=== PATIENT | male | born 1935 | race Caucasian/White ===

== ENCOUNTER 2022-01-19 13:37 | Inpatient (IN) | payer MEDICARE, OTHER, SELFPAY ==
--- NOTE | 2022-01-16 09:31 | EKG12_ITS ---
Test Reason : PRE OP Blood Pressure : / mmHG Vent. Rate : 095 BPM Atrial Rate : 095 BPM P-R Int : 144 ms QRS Dur : 126 ms QT Int : 400 ms P-R-T Axes : 104 -41 065 degrees QTc Int : 502 ms Sinus rhythm with frequent Premature ventricular complexes Left axis deviation Left ventricular hypertrophy with QRS widening and repolarization abnormality Septal [place], age undetermined, cannot be excluded Abnormal ECG Confirmed by VANDANA FELDMAN, NAILA ([id number]), index editor MARSHA CHAMPION ([id number]) on 01/17/2022 12:51:30 PM Referred By: Jose Mendez Confirmed By:NAILA ROSS MD
[2022-01-16 09:48] LABS: Hematocrit 35.7 % (40-54); Hemoglobin 12.3 g/dL (13.0-16.5); Mean Corp Hgb Conc 34.5 g/dL (32-36); Mean Corpuscular Hgb 33.9 pg (27.0-32.0); Mean Corpuscular Volume 98.3 fL (80-94); Mean Platelet Vol. 12.3 fl (6.2-12.0); POSITIVE MORPHOLOGY YES; Platelet Count 268 K/mm3 (150-450); RBC Distribution Width CV 19.4 % (11.6-14.6); RBC Distribution Width SD 70.7 fl (35.1-43.9); Red Blood Count 3.63 M/mm3 (4.6-6.2); White Blood Count 9.4 K/mm3 (4.4-11.0)
[2022-01-16 10:09] LABS: International Normalized Ratio 1.1; Prothrombin Time (Protime)PT. 13.8 SECONDS (11.7-14.9)
[2022-01-16 10:23] LABS: AST(SGOT) 13 U/L (15-37); Alanine Aminotransfer ALT/SGPT 19 U/L (16-61); Albumin, Serum 3.8 g/dL (3.2-5.0); Alkaline Phosphatase 72 U/L (45-117); Anion Gap 5 (5-15); BUN 16 mg/dL (7-18); Bilirubin, Direct 0.35 mg/dL (0.00-0.30); Calcium,Total 10.1 mg/dL (8.5-10.1); Chloride 105 mmol/L (98-107); EST Glomerular Filtration Rate 75 mL/min (>60); Est Glom Filt Rate - Afr Amer 91 mL/min (>60); Glucose 141 mg/dL (74-106); Potassium 4.3 mmol/L (3.5-5.1); Protein, Total 7.8 g/dL (6.4-8.2); Sodium Level 139 mmol/L (136-145)
[2022-01-16 10:30] LABS: Hemoglobin A1c 5.5 % (3.8-5.6)
--- NOTE | 2022-01-18 14:44 | SUR.PREOP ---
pt called and given arrival time of 1230. pt also told per anesthesia that he can drink apple juice at 0830 d/t being diabetic and having later surgery. pt voices understanding
[2022-01-19] VITALS (10 sets, daily range): BP systolic 121–180; BP diastolic 61–84; PULSE 62–97; RESP 14–18; TEMP 36.3–36.9; O2SAT 95–100; BMI 28.2
[2022-01-19] MEDS: Lactated Ringers 1,000 ML 15 ML IV ×2 (12:53→15:33)
[2022-01-19 13:15] LABS: Bedside Glucose 127 mg/dL (74-106)
[2022-01-19] MEDS: Cefazolin 2 GM in 0.9% Normal Saline 100 ML IV (13:30)
--- NOTE | 2022-01-19 13:38 | DCINST_ITS ---
Discharge Instructions Diet Discharge Diet: No restrictions and Light diet - advance as tolerated Activity Discharge Activity: Return to Normal Activity and No Restrictions Follow Up Care Test Results: Test results from this visit will be discussed in further detail at your follow- up appointment, if applicable. Discharge Plan Admission Primary Reason for Your Visit: neel Attending Provider: Jose Mendez Primary Care Provider: SENTHIL ÁLVAREZ Instructions Patient Instructions: NEEL Home Recovery Discharge Orders/Prescriptions Prescriptions: New ciprofloxacin HCl [Cipro] 500 mg tablet 500 mg PO BID Qty: 10 0RF Continued losartan 50 mg Tablet 50 mg PO DAILY metformin 500 mg Tablet 500 mg PO BID Vitamin B-12 50 mcg Tablet 50 mcg PO DAILY pravastatin 10 mg Tablet 5 mg PO DAILY tamsulosin 0.4 mg Capsule 0.4 mg PO DAILY docusate sodium [Colace] 100 mg Capsule 100 mg PO DAILY hydrochlorothiazide 25 mg Tablet 12.5 mg PO DAILY finasteride 5 mg Tablet 5 mg PO DAILY cholecalciferol (vitamin D3) [Vitamin D3] 25 mcg (1,000 unit) Capsule 25 mcg PO DAILY Held clopidogrel [Plavix] 75 mg Tablet 75 mg PO DAILY Hold Instructions: Resume on 01/19/22. aspirin 81 mg Tablet,Delayed Release (Dr/Ec) 81 mg PO DAILY Hold Instructions: Resume on 02/02/22. Other Ambulatory Orders: 12 Lead EKG (Routine) Timeframe: [id number] Location: None Selected Ordered By: Dr. Rajeev Farias Referrals / Follow Up: SENTHIL ÁLVAREZ [Other] Jose Mendez MD [Med Staff - Active Staff] - Disposition Disposition (needs filled in before D/C Order can be placed): Home, Self Care
--- NOTE | 2022-01-19 13:38 | PCM.HP.STD ---
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 [facility] Narrative OCTAVIO AREVALO, is a 86 M who presents for transurethral section of the prostate and incomplete bladder emptying [facility] Medical History (Updated 01/12/22 @ 09:27 by Tika Keyes) Bladder disease CPAP (continuous positive airway pressure) dependence Diabetes High cholesterol Hypertension Shortness of breath on exertion Sleep apnea Stroke/cerebrovascular accident Wears dentures Home Medications aspirin 81 mg tablet,delayed release 81 mg PO DAILY 01/12/22 [History Last Taken 01/09/22] cholecalciferol (vitamin D3) 25 mcg (1,000 unit) capsule (Vitamin D3) 25 mcg PO DAILY 01/12/22 [History Last Taken Unknown] clopidogrel 75 mg tablet (Plavix) 75 mg PO DAILY 01/12/22 [History Last Taken 01/09/22] cyanocobalamin (vitamin B-12) 50 mcg tablet (Vitamin B-12) 50 mcg PO DAILY 01/12/22 [History Last Taken Unknown] docusate sodium 100 mg capsule (Colace) 100 mg PO DAILY 01/12/22 [History Last Taken Unknown] finasteride 5 mg tablet 5 mg PO DAILY 01/12/22 [History Last Taken 01/19/22] hydrochlorothiazide 25 mg tablet 12.5 mg PO DAILY 01/12/22 [History Last Taken Unknown] losartan 50 mg tablet 50 mg PO DAILY 01/12/22 [History Last Taken 01/19/22] metformin 500 mg tablet 500 mg PO BID 01/12/22 [History Last Taken Unknown] pravastatin 10 mg tablet 5 mg PO DAILY 01/12/22 [History Last Taken Unknown] tamsulosin 0.4 mg capsule 0.4 mg PO DAILY 01/12/22 [History Last Taken Unknown] ciprofloxacin HCl 500 mg tablet (Cipro) 500 mg PO BID #10 tabs 01/19/22 [Rx Last Taken Unknown] Allergy/AdvReac Type Severity Reaction Status Date / Time lisinopril Allergy Vomiting Verified 01/19/22 12:41 Surgical History (Updated 01/12/22 @ 09:27 by Tika Keyes) Hx of cholecystectomy Social History Smoking Status: Never smoker Vital Signs Vital Signs Vital Signs: 01/19/22 12:43 01/19/22 12:43 Temperature 97.4 F L Temperature Source Temporal Pulse Rate 97 Respiratory Rate 16 Respiratory Pattern Normal Blood Pressure 145/77 H Blood Pressure Mean 99 Blood Pressure Source Monitor Blood Pressure Position Semi-Fowlers Blood Pressure Location Right Arm Pulse Ox 99 Oxygen Delivery Method Room Air Weight Weight: 94.347 kg Body Mass Index (BMI) 28.2 Results Lab / Micro Data Result Diagrams: 01/16/22 09:23 01/16/22 09:23 Labs: Laboratory Results - last 24 hr 01/19/22 12:44: POC Glucose 127 H
--- NOTE | 2022-01-19 14:30 | PROS_PTH ---
PATIENT: OCTAVIO AREVALO LOC: MS3 U#:[id number] AGE/SX: 86/M ROOM: [facility] RE01/20/[address]: Dr. Jose Mendez MD : [id number] BED: 1 DIS: 01/21/2022 SPEC #: [id number] RECD: 01/19/22 15:59 STATUS: KATHRINE WEBBERTrino #: [id number] ILA: 01/19/22 14:[address]: Jose Mendez DEPT: SURGICAL PATHOLOGY RECD BY: Lucille Kan Tissues: Prostate, NOS Procedures: Surgery Specimen Level IV HEADER OPERATION: Transurethal resection of prostate, olympus PRE-OP DIAGNOSIS: BPH with lower urinary tract symptoms, retention of urine, cystitis without hematuria TISSUE SUBMITTED: Prostate tissue MICROSCOPIC DIAGNOSIS Prostate tissue, transurethral resection: Benign prostatic hyperplasia, glandular and stromal type. Chronic inflammation. SJ 01/23/22 MICROSCOPIC DESCRIPTION Slides are reviewed. GROSS DESCRIPTION Received is one container labeled with the patient's name and designated prostate tissue. The specimen consists of multiple irregular fragments of pink-mills, rubbery, soft tissue that in aggregate weigh 14.9 gm and measure in aggregate 6.0 x 5.0 x 2.5 cm. [employer] tissue is submitted in 10 cassettes. / SJ:belle 01/22/22 TC:5 CPT: 48333
--- NOTE | 2022-01-19 14:43 | OP.PCM_ITS ---
Report of Operation Date of Procedure: 01/19/22 Pre-Operative Diagnosis: bph with obstruction Post-Operative Diagnosis: same Surgery/Procedure Performed:: TURP Description of Surgical Findings:: Patient was taken back to the operating room, timeout procedure was performed, he was identified and marked and placed on the operating room table. He underwent general anesthesia. He was placed in dorsolithotomy position. Penis and testicles were prepped and draped in usual sterile fashion. Went into the bladder using the visual obturator with a resectoscope. Once inside the bladder identified the right and left ureteral orifice. I then identified the prostate and the anatomy of the prostate. I marked out the area of the sphincter and the verumontanum was identified. I then proceeded with the prostate resection first resected the median lobe. And then resected the right lobe of the prostate. Then to resect the left lobe of the prostate. I then resected the apical tissue of the prostate. This was a complete resection of all obstructive tissue to improve voiding and relieve obstruction. I then made sure that there was no injury to the sphincter or the verumontanum was still intact. At the end of the resection all the chips were Ellik out of the bladder. I then identified the left and right ureteral orifice and these were confirmed to be in good position and effluxing and not injured. The resectoscope was removed, a 22 [place] catheter was placed into the bladder on continuous irrigation. And the urine was fairly light pink color and draining normally. He was taken back to the PACU in good condition. CPT 17229 Surgeon: Jose Mendez Type of Anesthesia: General Drains: 22fr 3 way Admit VTE Documentation VTE Present on Admission: No VTE Mechan Device Prophylaxis: SCD's VTE Pharm Prophylaxis ordered?: No
[2022-01-19 16:25] LABS: Bedside Glucose 108 mg/dL (74-106)
[2022-01-19] MEDS: Ondansetron 4 MG/2 ML Vial IV (18:45)
[2022-01-19] MEDS: Acetaminophen 500 MG Tablet PO (20:34)
[2022-01-19] MEDS: Pravastatin 20 MG Tablet 5 MG PO (20:38)
[2022-01-19] MEDS: metFORMIN HCl 500 MG Tablet PO (20:39)
[2022-01-19] MEDS: Tamsulosin HCl 0.4 MG Capsule PO (20:39)
[2022-01-19] MEDS: Morphine 2 MG/ML Syringe IV (23:10)
[2022-01-20 02:00] VITALS: BP 117/65; PULSE 72; RESP 13; TEMP 37; O2SAT 98
[2022-01-20] MEDS: Acetaminophen 500 MG Tablet PO ×4 (02:44→20:13)
--- NOTE | 2022-01-20 06:44 | PCM.PN.GU ---
Subjective Subjective Status post TURP, urine still fairly bloody this morning we will continue with irrigation, hold discharge for this morning and may be discharged tomorrow continue with bladder irrigation. Objective Data Objective Data Vital Signs: Vital Signs Temp Pulse Resp BP Pulse Ox O2 Del Method 98.6 F 72 13 117/65 98 Room Air 01/20/22 02:00 01/20/22 02:00 01/20/22 02:00 01/20/22 02:00 01/20/22 02:00 01/20/22 02:00 Oxygen Delivery Method Room Air Weight: 94.347 kg Body Mass Index (BMI) 28.2 Intake & Output: Intake and Output for Last 24 Hours 01/18/22 01/19/22 01/20/22 23:59 23:59 23:59 Intake Total 1110 / 1110 Output Total 250 / 250 900 / 900 Balance 860 / 860 -900 / -900 Lab / Micro Data Result Diagrams: 01/16/22 09:23 01/16/22 09:23 Labs: Laboratory Results - last 24 hr 01/19/22 12:44: POC Glucose 127 H 01/19/22 16:07: POC Glucose 108 H
[2022-01-20 08:00] VITALS: BP 121/66; PULSE 75; RESP 16; TEMP 36.7; O2SAT 97
[2022-01-20] MEDS: Losartan Potassium 50 MG Tablet PO (08:55)
[2022-01-20] MEDS: Docusate Sodium 100 MG Capsule PO (08:55)
[2022-01-20] MEDS: metFORMIN HCl 500 MG Tablet PO ×2 (08:55→17:56)
[2022-01-20] MEDS: Finasteride 5 MG Tablet PO (08:55)
[2022-01-20] MEDS: hydroCHLOROthiazide 12.5mg 12.5 MG PO (08:56)
[2022-01-20] MEDS: Glucerna Shake 120 ML LIQUID PO ×2 (08:57→14:04)
--- NOTE | 2022-01-20 12:19 | CASEMGMT ---
Face to Face with patient for initial transition planning/care coordination assessment. BHARATHI VALDES introduced self and role at [facility], voices understanding. Care providers, pharmacy, and demographics verified. PCP: Dr. Crow Specialists: Dr. Mendez, Dr. Ferrer (oncology) Preferred Pharmacy: [facility] [place] Insurance: [facility] A/B, MMO supplement Prescription Benefit: Yes LNOK: [place] Living Arrangements: Pt lives with his in a two story home but pt stays on the first floor. there are two steps into the home. Pt denies any difficulty with these steps. Pt states he is independent with ADLs prior to admission. Transportation: pt, his (short distances only), and his daughter drive. DME: shower chair, raised toilet seat, cane x2 (one is a quad cane), grab bars, CPAP SNF/HH: pt denies any previous SNF, states received home PT/OT services in the past only. Was a provider in [facility] but he cannot recall the name. Plan: Pt plans to return home at discharge. Denies any needs at this time. BHARATHI VALDES explained QUINTERO for to patient, patient voiced understanding.? Patient signed QUINTERO Form and filed in chart.? Patient provided with copy of signed QUINTERO form.? Patient had no further questions or concerns.?? Will continue to follow and assist as needs are identified. Tahmina Raman RN CM
[2022-01-20 14:00] VITALS: BP 148/73; PULSE 73; RESP 16; TEMP 36.6; O2SAT 98
[2022-01-20] MEDS: Tamsulosin HCl 0.4 MG Capsule PO (17:56)
[2022-01-20 20:10] VITALS: BP 145/69; PULSE 81; RESP 16; TEMP 36.7; O2SAT 95
--- NOTE | 2022-01-20 20:15 | CASEMGMT ---
BHARATHI VALDES follow-up: Noted PT recommendations for additional therapy. This RN CM to pt's bedside to discuss. Pt states he walked in here and feels he can walk out. Discussed PT recommendations and pt feels he was limited by his CBI but feels he can do more. Pt will need re-evaluated tomorow without CBI. Pt is amenable to HH PT/OT if needed. Mentioned SNF which pt states I hope not. If HH needed, pt can be discharged and HH PT can be arranged on Saturday. If SNF needed, pt will need to stay until Saturday for these arrangements to be made. Tahmina Raman RN CM
[2022-01-20] MEDS: Pravastatin 20 MG Tablet 5 MG PO (21:30)
[2022-01-21 02:33] VITALS: BP 134/70; PULSE 71; RESP 16; TEMP 36.8; O2SAT 96
[2022-01-21] MEDS: Acetaminophen 500 MG Tablet PO ×2 (02:38→07:49)
[2022-01-21 07:43] VITALS: BP 148/73; PULSE 70; RESP 16; TEMP 36.6; O2SAT 94
[2022-01-21] MEDS: Glucerna Shake 120 ML LIQUID PO ×2 (07:47→11:35)
[2022-01-21] MEDS: metFORMIN HCl 500 MG Tablet PO (07:47)
[2022-01-21] MEDS: Finasteride 5 MG Tablet PO (09:30)
[2022-01-21] MEDS: Docusate Sodium 100 MG Capsule PO (09:30)
[2022-01-21] MEDS: Losartan Potassium 50 MG Tablet PO (09:31)
[2022-01-21] MEDS: hydroCHLOROthiazide 12.5mg 12.5 MG PO (09:31)
--- NOTE | 2022-01-21 11:06 | PCM.PN.BLA ---
Progress Note xie removed has been voiding well this am home today.
[2022-01-21 11:07] VITALS: BP 148/67; PULSE 74; RESP 18; TEMP 36.7; O2SAT 98
--- NOTE | 2022-01-22 12:02 | CASEMGMT ---
BHARATHI VALDES Follow-up: Reviewed re-eval by [employer] which states pt was able to ambulate with quad cane and did not require any additional therapy. Call placed to pt who states he continues to do well and does not need any further assistance. Tahmina Raman RN CM
== END 2022-01-21 13:00 | disposition home or self-care (01) | DRG 713 ==
LOC: SDC 14:55 → MS3 14:55
PROVIDERS: Anesthesiology; Admitting Provider Urology; Referring Provider Urology; Visit Provider Urology
PROC: 0TBB8ZZ Excision of Bladder, Via Natural or Artificial Opening Endoscopic (ICD-10-PCS; principal; 2022-01-19 14:20)
DX: N40.1 Benign prostatic hyperplasia with lower urinary tract symptoms (principal); N30.00 Acute cystitis without hematuria; E10.9 Type 1 diabetes mellitus without complications; G47.30 Sleep apnea, unspecified; R31.9 Hematuria, unspecified; R35.0 Frequency of micturition; R35.1 Nocturia; R33.8 Other retention of urine; Z79.02 Long term (current) use of antithrombotics/antiplatelets; Z79.82 Long term (current) use of aspirin; Z79.84 Long term (current) use of oral hypoglycemic drugs; Z79.899 Other long term (current) drug therapy
CPT/HCPCS: 36415; 80048; 80076; 82962; 83036; 85027; 85610; 85730; 88305; 93005; 97116; 97162; 97530; 97802; J7120; J2405

== ENCOUNTER 2023-01-13 10:41 | Emergency (ER) | payer MEDICARE, OTHER, SELFPAY ==
[2023-01-13 10:44] VITALS: BP 153/78; PULSE 96; RESP 16; TEMP 36.2; O2SAT 100
--- NOTE | 2023-01-13 10:56 | EDS_ITS ---
HPI <CJ Ha - Last Filed: 01/13/23 11:46> History of Present Illness Chief Complaint: Complaint Narrative Narrative: 87-year-old male presents with urinary frequency and burning. Over the last couple days he is urinating almost every hour. He has BPH and had a TURP about a year ago with Dr. Mendez. He states he needed a Aguayo catheter in June 2022 and since then has had intermittent urinary issues. He is scheduled to see the urologist tomorrow but since he had to urinate every hour last night he decided come in. Denies fever or chills. No abdominal or flank pain, no hematuria. [facility] <CJ Ha - Last Filed: 01/13/23 11:46> [facility] Medical History (Updated 01/13/23 @ 11:45 by CJ Ha) Bladder disease CPAP (continuous positive airway pressure) dependence Diabetes High cholesterol Hypertension Shortness of breath on exertion Sleep apnea Stroke/cerebrovascular accident Wears dentures Home Medications aspirin 81 mg tablet,delayed release 81 mg PO DAILY 01/12/22 [History Last Taken 01/09/22] cholecalciferol (vitamin D3) 25 mcg (1,000 unit) capsule (Vitamin D3) 25 mcg PO DAILY 01/12/22 [History Last Taken Unknown] clopidogrel 75 mg tablet (Plavix) 75 mg PO DAILY 01/12/22 [History Last Taken 01/09/22] cyanocobalamin (vitamin B-12) 50 mcg tablet (Vitamin B-12) 50 mcg PO DAILY 01/12/22 [History Last Taken Unknown] docusate sodium 100 mg capsule (Colace) 100 mg PO DAILY 01/12/22 [History Last Taken Unknown] finasteride 5 mg tablet 5 mg PO DAILY 01/12/22 [History Last Taken 01/19/22] hydrochlorothiazide 25 mg tablet 12.5 mg PO DAILY 01/12/22 [History Last Taken Unknown] losartan 50 mg tablet 50 mg PO DAILY 01/12/22 [History Last Taken 01/19/22] metformin 500 mg tablet 500 mg PO BID 01/12/22 [History Last Taken Unknown] pravastatin 10 mg tablet 5 mg PO DAILY 01/12/22 [History Last Taken Unknown] tamsulosin 0.4 mg capsule 0.4 mg PO DAILY 01/12/22 [History Last Taken Unknown] ciprofloxacin HCl 500 mg tablet (Cipro) 500 mg PO BID #10 tabs 01/19/22 [Rx Last Taken Unknown] cephalexin 500 mg capsule 500 mg PO Q6 #40 CAPSULES 01/13/23 [Rx Last Taken U nknown] Allergy/AdvReac Type Severity Reaction Status Date / Time lisinopril Allergy Vomiting Verified 01/19/22 12:41 Surgical History Hx of cholecystectomy Social History Smoking Status: Never smoker ROS <CJ Ha - Last Filed: 01/13/23 11:46> ROS ED ROS Narrative Constitutional: Negative for fever, chills, malaise. GI: Negative for abdominal pain, nausea, vomiting. : Positive for dysuria, frequency. Negative for hematuria. EXAM <CJ Ha - Last Filed: 01/13/23 11:46> Physical Exam Narrative Exam Narrative: CONST: Patient sitting in no acute distress. EYES: Normal inspection. NECK: Normal inspection. RESP: No respiratory distress, CTAB. CVS: Regular rate and rhythm, no murmur, no gallop. ABD: Soft and nontender, no guarding or rebound, nondistended. SKIN: Color normal, no rash, warm, dry, intact. EXTREMITIES: Normal appearance, no pedal edema. NEURO: Oriented x4. PSYCH: Normal affect. Const Vital Signs: 01/13/23 10:44 Temperature 97.2 F L Temperature Source Temporal Pulse Rate 96 Respiratory Rate 16 Blood Pressure 153/78 H Blood Pressure Mean 103 Pulse Ox 100 Oxygen Delivery Method Room Air <Dr. Jd Carlson MD - Last Filed: 01/13/23 11:50> Physical Exam Const Vital Signs: 01/13/23 10:44 Temperature 97.2 F L Temperature Source Temporal Pulse Rate 96 Respiratory Rate 16 Blood Pressure 153/78 H Blood Pressure Mean 103 Pulse Ox 100 Oxygen Delivery Method Room Air MDM <CJ Ha - Last Filed: 01/13/23 11:46> [facility] MDM Narrative Medical decision making narrative: History gathered from: Patient and Patient having urinary burning and frequency. History of BPH/TURP on Flomax. He appears well and nontoxic. Vital signs within normal limits. Abdomen is soft, nontender, nondistended. Postvoid bladder scan shows 215 cc so is not retaining to significant degree that he requires an indwelling Aguayo. UA shows pyuria and was sent for culture. I prescribed Keflex for 10 days and he has scheduled follow-up with urology office tomorrow and was discharged in stable condition. Differential: UTI, urinary retention Lab Data Attestation: I reviewed the patient's lab results. Labs: Laboratory Results - last 24 hr 01/13/23 10:55 Urine Color Yellow Urine Clarity Cloudy Urine pH 8.0 Ur Specific Ethan 1.015 Urine Protein 100 H Urine Glucose (UA) Normal Urine Ketones Negative Urine Occult Blood 250 H Urine Nitrite Negative Urine Bilirubin Negative Urine Urobilinogen Normal Ur Leukocyte Esterase 500 H Urine RBC 0 SEEN Urine WBC >100 SEEN Ur Squamous Epith Cells 0 SEEN Urine Bacteria 0 SEEN Urine Mucus 0 SEEN <Dr. Jd Carlson MD - Last Filed: 01/13/23 11:50> MDM MDM Narrative Medical decision making narrative: History gathered from: Patient and Patient having urinary burning and frequency. History of BPH/TURP on Flomax. He appears well and nontoxic. Vital signs within normal limits. Abdomen is soft, nontender, nondistended. Postvoid bladder scan shows 215 cc so is not retaining to significant degree that he requires an indwelling Aguayo. UA shows pyuria and was sent for culture. I prescribed Keflex for 10 days and he has scheduled follow-up with urology office tomorrow and was discharged in stable condition. Differential: UTI, urinary retention I have personally performed a face to face assessment of the patient and have reviewed the RADHA Note. I performed a substantive portion of the visit including all aspects of the following. My venegas findings include: History is 87-year-old male history of BPH with a prior TURP procedure. Has appointment to see his urologist a week from Saturday. States he is having more urinary retention but he is able to urinate. Denies any fever. No gross hematuria or clots. Exam is [well-appearing 87-year-old male. Vital signs stable afebrile. HEENT exam unremarkable. Lungs clear. Heart regular rhythm. Abdomen soft, nondistended normal bowel sounds no peritoneal signs. Moving all 4 extremities. No lower extremity edema.] Medical Decision Making [UA showed white cells. He will be treated for UTI. Urine culture will be sent. There was no bacteria and no nitrites. Postvoid residual was between 200-50 so he is having some urinary retention. He and I discussed the options he did not want a catheter at this time. He understands that if this gets worse he may need a Aguayo catheter. He will follow-up with his urologist.] Other additions or changes: [None] Lab Data Labs: Laboratory Results - last 24 hr 01/13/23 10:55 Urine Color Yellow Urine Clarity Cloudy Urine pH 8.0 Ur Specific Ethan 1.015 Urine Protein 100 H Urine Glucose (UA) Normal Urine Ketones Negative Urine Occult Blood 250 H Urine Nitrite Negative Urine Bilirubin Negative Urine Urobilinogen Normal Ur Leukocyte Esterase 500 H Urine RBC 0 SEEN Urine WBC >100 SEEN Ur Squamous Epith Cells 0 SEEN Urine Bacteria 0 SEEN Urine Mucus 0 SEEN Discharge Plan Triage Chief Complaint: Complaint ED Midlevel Provider: Lisa Holm ED Provider: Jd Carlson Dx/Rx/DC Orders Clinical Impression: Acute UTI Instructions: ED Bladder Infection, Male (Adult) Prescriptions: New cephalexin 500 mg capsule 500 mg PO Q6 Qty: 40 0RF No Action losartan 50 mg Tablet 50 mg PO DAILY metformin 500 mg Tablet 500 mg PO BID clopidogrel [Plavix] 75 mg Tablet 75 mg PO DAILY Hold Instructions: Resume on 01/19/22. aspirin 81 mg Tablet,Delayed Release (Dr/Ec) 81 mg PO DAILY Hold Instructions: Resume on 02/02/22. Vitamin B-12 50 mcg Tablet 50 mcg PO DAILY pravastatin 10 mg Tablet 5 mg PO DAILY tamsulosin 0.4 mg Capsule 0.4 mg PO DAILY docusate sodium [Colace] 100 mg Capsule 100 mg PO DAILY hydrochlorothiazide 25 mg Tablet 12.5 mg PO DAILY finasteride 5 mg Tablet 5 mg PO DAILY cholecalciferol (vitamin D3) [Vitamin D3] 25 mcg (1,000 unit) Capsule 25 mcg PO DAILY ciprofloxacin HCl [Cipro] 500 mg tablet 500 mg PO BID Qty: 10 0RF Primary Care Provider: Care Physician,Yas Primary Referrals: NOT,DEFINED [Non-Staff] - Activity Restrictions/Additional Instructions: I prescribed Keflex which is an antibiotic to cover urinary tract infection. Please follow-up with the urologist as scheduled tomorrow. Disposition Disposition: Home, Self Care
[2023-01-13 10:59] VITALS: BMI 27.3
[2023-01-13 11:02] LABS: Bacteria 0 SEEN /hpf (None Seen); Mucous, Urine 0 SEEN /hpf (<or=2+); Red Blood Cells-Urine 0 SEEN /hpf (0-5); Squamous Epithelial Cells - UA 0 SEEN /hpf (0-5)
[2023-01-13 11:06] LABS: Color, Urine Yellow (Yellow); Glucose, Dipstick Normal (Normal); Ketone-Dipstick Negative (Negative); Leukocyte Esterase-Dipstick 500 /ul (Negative); Nitrite-Dipstick Negative (Negative); Occult Blood-Urine 250 /ul (Negative); Protein-Dipstick 100 mg/dl (Negative); Specific Gravity, Urine 1.015 (1.002-1.030); Urine Bilirubin Dipstick Negative (Negative); Urine Clarity Cloudy (Clear); Urine Urobilinogen Normal (Normal)
[2023-01-13 11:24] LABS: White Blood Cells >100 SEEN /hpf (0-5)
[2023-01-13] MEDS: Cephalexin 250 MG Capsule 500 MG PO (11:57)
== END 2023-01-13 11:59 | disposition home or self-care (01) ==
PROVIDERS: Physician Assistant; Emergency Provider Emergency Medicine; Visit Provider Emergency Medicine
DX: N39.0 Urinary tract infection, site not specified (principal); E11.9 Type 2 diabetes mellitus without complications; E78.00 Pure hypercholesterolemia, unspecified; I10 Essential (primary) hypertension; Z79.82 Long term (current) use of aspirin; Z79.02 Long term (current) use of antithrombotics/antiplatelets; Z79.84 Long term (current) use of oral hypoglycemic drugs; Z79.899 Other long term (current) drug therapy; Z86.73 Personal history of transient ischemic attack (TIA), and cerebral infarction without residual deficits; Z90.79 Acquired absence of other genital organ(s)
CPT/HCPCS: 81001; 87077; 87086; 87088; 87186; 99283

== ENCOUNTER → 2023-05-09 | Outpatient (CLI) | payer MEDICARE, OTHER, SELFPAY | END | disposition home or self-care (01) | LOC: LABSPEC 16:22 | PROVIDERS: Referring Provider Urology; Visit Provider Urology | DX: R33.8 Other retention of urine (principal) | CPT/HCPCS: 87086 ==